=== PATIENT | female | born 1970 | race African-American/Black ===

== ENCOUNTER 2018-01-15 02:37 | Emergency (ER) | payer BC ==
[2018-01-15] MEDS ORDERED: Morphine 4 MG/ML VIAL ONE ×2 (03:33→04:41)
[2018-01-15] MEDS ORDERED: Ondansetron HCl/PF 4 MG/2 ML Vial ONE (03:33)
[2018-01-15 03:58] LABS: #Basophils 0.1 thou/uL (0.0-0.2); #Eosinphils 0.1 thou/uL (0.0-0.7); #Lymphocytes 2.9 thou/uL (1.20-3.40); #Monocytes 0.5 thou/uL (0.11-0.59); #Neutrophils 3.2 thou/uL (1.40-6.50); %Basophils 1.3 % (0.0-1.0); %Eosinophils 1.2 % (0.0-10.0); %Lymphocytes 42.8 % (21.0-51.0); %Monocytes 7.9 % (0.0-10.0); %Neutrophils 46.8 % (42.0-75.0); Hemoglobin 10.8 g/dL (12.0-16.0); Mean Corpuscular HGB CONC 32.7 g/dL (32.0-36.0); Mean Corpuscular Hemoglobin 26.4 pg (27.0-31.0); Mean Corpuscular Volume 80.7 fL (78.0-98.0); Platelet Count 343 thou/uL (130-400); RBC Distribution Width 16.3 % (11.5-14.5); Red Blood Cell (RBC) Count 4.11 mill/uL (4.20-5.40); White Blood Cell (WBC) Count 6.9 thou/uL (4.8-10.8)
[2018-01-15 04:20] LABS: ALT (SGPT) 13 U/L (8-55); AST (SGOT) 14 U/L (5-34); Albumin 4.5 g/dL (3.5-5.0); Alkaline Phosphatase 61 U/L (40-150); Anion Gap 16 mmol/L (10-20); BUN (Urea Nitrogen) 19 mg/dL (7.0-18.7); Bilirubin, Total Less than 0.2 mg/dL (0.2-1.2); Calc. Creatinine Clearance 0 mL/min (70-130); Calcium 9.3 mg/dL (7.8-10.44); Carbon Dioxide 17 mmol/L (22-29); Chloride 106 mmol/L (98-107); Estimated GFR-MDRD 60; Globulin 3.5 g/dL (2.4-3.5); Glucose 94 mg/dL (70-105); Lipase 25 U/L (8-78); Potassium 4.6 mmol/L (3.5-5.1); Sodium 134 mmol/L (136-145)
[2018-01-15 04:48] LABS: BHCG - Serum Negative (NEGATIVE); Pregs Control Background? CLEAR/WHITE (CLR/WHITE); Pregs Control Bar Appear? YES (CONTROL BAR)
[2018-01-15 05:36] LABS: Bilirubin Negative (Negative); Blood, Urine Negative (Negative); Clarity CLEAR (Clear); Glucose, Urine (Dipstick) Negative (Negative); Leukocyte Negative (Negative); Nitrite Negative (Negative); Protein, Urine (Dipstick) Negative (Neg-Trace); Urobilinogen 0.2 mg/dL (0.2-1.0); pH, Urine 6.5 (5.0-9.0)
--- NOTE | 2018-01-15 09:44 | CT ---
PRELIMINARY REPORT/[facility]/EMERGENTY AFTER-HOURS PROCEDURE CT Abdomen and Pelvis With Intravenous Contrast EXAM DATE/TIME: Exam ordered 01/15/2018 4:29 AM CLINICAL HISTORY: 47 years old, female; Pain; Abdominal pain; Generalized; Patient HX: 47f presents to the ed for evalu ation of lower abdominal pain x2 days. Reports pain was intermittent yesterday but is more constant t jesse. Reports recent cervical ca and is being seen at [facility]. Reports she is having surgery on 01/23. Reports her doctor told her it was in the early stages. TECHNIQUE: Axial computed tomography images of the abdomen and pelvis with intravenous contrast. Coronal reformatted images were created and reviewed. COMPARISON: No relevant prior studies available. FINDINGS: Lung bases: There is subpleural atelectasis of the dependent portions of the lungs. ABDOMEN: Liver: Normal. No mass. Gallbladder and bile ducts: There has been a cholecystectomy. No ductal dilation. Pancreas: The pancreas appears normal. No ductal dilation. Spleen: The spleen is normal. Adrenals: The adrenal glands are normal. Kidneys and ureters: The kidneys appear normal. No hydronephrosis. Stomach and bowel: The stomach is normal. The duodenum is unremarkable. The colon is normal. No obstr uction. No mucosal thickening. PELVIS: Appendix: A normal appendix is identified. Bladder: The bladder is normal. Reproductive: The uterus is normal. ABDOMEN and PELVIS: Intraperitoneal space: Normal. No free air. No significant fluid collection. Bones/joints: No acute fracture. No dislocation. Soft tissues: Normal. Vasculature: The vasculature is normal. There are phleboliths in the pelvis. No abdominal aortic aneu rysm. Lymph nodes: Normal. No enlarged lymph nodes. IMPRESSION: No acute abdominal pelvic pathology. Thank you for allowing us to participate in the care of your patient. Dictated and Authenticated by: Elio Núñez MD 01/15/2018 4:52 AM Central Time ([place] & [place]) FINAL REPORT CT ABDOMEN AND PELVIS: Date: 01/15/18 IMPRESSION: I agree with the preliminary report provided by Eloisa. No definite acute CT findings are evident to ex plain the patient's abdominal pain. POS: [facility]
== END 2018-01-15 06:10 | disposition home or self-care (01) ==
LOC: ERS 02:37
DX: R10.32 Left lower quadrant pain (principal); R10.31 Right lower quadrant pain; F41.9 Anxiety disorder, unspecified; Z79.899 Other long term (current) drug therapy
CPT/HCPCS: 74177; 80053; 81003; 83605; 83690; 84703; 85025; 96361; 96374; 96375; 96376; J2270; J2405

== ENCOUNTER 2019-07-12 15:22 | Emergency (ER) | payer SELFPAY ==
[~2019-07-12 15:22] MED LIST: Iopamidol-370 76% 500 ML 1 ML ONE
[2019-07-12] MEDS ORDERED: Ondansetron PF 4 MG/2 ML Vial ONE (16:07)
[2019-07-12] MEDS ORDERED: Acetaminophen 500 MG TAB ONE (16:07)
[2019-07-12 16:19] LABS: #Basophils 0.1 thou/uL (0.0-0.2); #Eosinphils 0.2 thou/uL (0.0-0.7); #Monocytes 0.8 thou/uL (0.11-0.59); #Neutrophils 3.9 thou/uL (1.40-6.50); %Basophils 1.2 % (0.0-1.0); %Eosinophils 2.2 % (0.0-10.0); %Lymphocytes 37.9 % (21.0-51.0); %Monocytes 9.9 % (0.0-10.0); %Neutrophils 48.8 % (42.0-75.0); Hemoglobin 10.9 g/dL (12.0-16.0); Mean Corpuscular HGB CONC 31.9 g/dL (32.0-36.0); Mean Corpuscular Hemoglobin 25.1 pg (27.0-31.0); Mean Corpuscular Volume 78.8 fL (78.0-98.0); Mean Platelet Volume 8.8 fL (7.4-10.4); Platelet Count 365 thou/uL (130-400); RBC Distribution Width 16.7 % (11.5-14.5); Red Blood Cell (RBC) Count 4.34 mill/uL (4.20-5.40)
[2019-07-12 16:26] LABS: Bilirubin Negative (Negative); Blood, Urine Negative (Negative); Clarity Clear (Clear); Glucose, Urine (Dipstick) Normal (Negative); Leukocyte Negative Leu/uL (Negative); Nitrite Negative (Negative); Protein, Urine (Dipstick) Negative (Neg-Trace); Urobilinogen Normal mg/dL (Less than 2)
[2019-07-12] MEDS ORDERED: Hydrocodone-Acetamin 15 ML UDCUP ONE (17:02)
--- NOTE | 2019-07-12 17:23 | CT ---
CT of abdomen and pelvis: 07/12/2019 COMPARISON: 01/15/2018 HISTORY: Left lower quadrant pain TECHNIQUE: Axial CT imaging at 5 mm intervals from lung bases through pubic symphysis with IV contras t. Coronal and sagittal reformatted imaging obtained. FINDINGS: The visualized lung bases demonstrate no acute findings. Cholecystectomy clips are present. No free intraperitoneal air. The liver, spleen, pancreas, adrenal glands, and kidneys appear grossly unremarkable. There is a focal area of inflammatory fat stranding adjacent to the colon anteriorly within the left lower quadrant at the junction of the descending colon and sigmoid colon. This is best seen on axial image 65 and there is a central area of fat attenuation in the region of this inflammatory lau ge. This is felt to represent epiploic appendagitis. No evidence for large or small bowel obstruction. There is significant stool seen within the colon fr om the level of the cecum through the level of the distal transverse colon. The appendix is not discretely visualized. No right lower quadrant inflammatory change noted. Vascular structures of abdomen/pelvis appear patent. No lymphadenopathy. No acute osseous abnormality . IMPRESSION: Focal area of inflammatory change within the left lower quadrant anterior to the junction of the descending colon and sigmoid colon. There is fat attenuation at the epicenter of this inflammatory change suggesting epiploic appendagitis.
[2019-07-12 17:25] LABS: Albumin 3.8 g/dL (3.5-5.0)
[2019-07-12 17:26] LABS: Chloride 107 mmol/L (98-107); Sodium 135 mmol/L (136-145)
[2019-07-12 17:27] LABS: Calcium 8.3 mg/dL (7.8-10.44); Glucose 72 mg/dL (70-105)
[2019-07-12 17:28] LABS: Protein, Total 6.8 g/dL (6.0-8.3)
[2019-07-12 17:29] LABS: Anion Gap 15 mmol/L (10-20); Bilirubin, Total Less than 0.2 mg/dL (0.2-1.2); Carbon Dioxide 17 mmol/L (22-29)
[2019-07-12 17:30] LABS: Alkaline Phosphatase 94 U/L (40-110)
[2019-07-12 17:31] LABS: Calc. Creatinine Clearance 0 mL/min (70-130); Estimated GFR-MDRD 81
[2019-07-12 17:32] LABS: BUN (Urea Nitrogen) 15 mg/dL (7.0-18.7)
[2019-07-12 17:33] LABS: ALT (SGPT) 11 U/L (8-55); AST (SGOT) 14 U/L (5-34); Lipase 11 U/L (8-78)
[2019-07-12] MEDS ORDERED: Morphine 4 MG/ML VIAL ONE (18:26)
== END 2019-07-12 19:08 | disposition home or self-care (01) ==
LOC: ERS 15:22
DX: K63.89 Other specified diseases of intestine (principal); F41.9 Anxiety disorder, unspecified; F32.9 Major depressive disorder, single episode, unspecified; Z79.899 Other long term (current) drug therapy
CPT/HCPCS: 36416; 74177; 80053; 81003; 83690; 85025; 96361; 96374; 96375; J2270; J2405; Q9967

== ENCOUNTER 2019-09-10 18:46 | Emergency (ER) | payer OTHER, SELFPAY ==
[~2019-09-10 18:46] MED LIST changes: +Iopamidol 370 76% 100 ML VIAL ONE; -Iopamidol-370 76% 500 ML 1 ML ONE
[2019-09-10] MEDS ORDERED: Ondansetron PF 4 MG/2 ML Vial ONE (19:16)
[2019-09-10] MEDS ORDERED: Morphine 4 MG/ML VIAL ONE ×3 (19:16→23:01)
[2019-09-10 19:42] LABS: #Basophils 0.1 thou/uL (0.0-0.2); #Eosinphils 0.1 thou/uL (0.0-0.7); #Lymphocytes 2.9 thou/uL (1.20-3.40); #Monocytes 0.6 thou/uL (0.11-0.59); #Neutrophils 2.4 thou/uL (1.40-6.50); %Basophils 1.8 % (0.0-1.0); %Eosinophils 2.3 % (0.0-10.0); %Lymphocytes 47.3 % (21.0-51.0); %Monocytes 9.2 % (0.0-10.0); %Neutrophils 39.5 % (42.0-75.0); Hemoglobin 11.5 g/dL (12.0-16.0); Mean Corpuscular HGB CONC 31.5 g/dL (32.0-36.0); Mean Corpuscular Hemoglobin 25.3 pg (27.0-31.0); Mean Corpuscular Volume 80.3 fL (78.0-98.0); Mean Platelet Volume 8.1 fL (7.4-10.4); Platelet Count 323 thou/uL (130-400); RBC Distribution Width 16.6 % (11.5-14.5); Red Blood Cell (RBC) Count 4.53 mill/uL (4.20-5.40); White Blood Cell (WBC) Count 6.1 thou/uL (4.8-10.8)
--- NOTE | 2019-09-10 20:04 | RAD ---
ONE VIEW CHEST: History: Nausea, vomiting, dyspnea, abdominal pain and body aches. Comparison: 11-24-16 FINDINGS: Cardiac silhouette and pulmonary vasculature are within normal limits. Linear density is seen at the left lung base which may represent minimal atelectasis versus scarring. The lungs are otherwise clear without consolidation or pleural fluid. No other interval change. IMPRESSION: No acute cardiopulmonary process. POS: [facility]
[2019-09-10 20:06] LABS: ALT (SGPT) 15 U/L (8-55); AST (SGOT) 14 U/L (5-34); Albumin 4.5 g/dL (3.5-5.0); Alkaline Phosphatase 113 U/L (40-110); Anion Gap 15 mmol/L (10-20); BUN (Urea Nitrogen) 7 mg/dL (7.0-18.7); Bilirubin, Total Less than 0.2 mg/dL (0.2-1.2); CK (CPK) 88 U/L (29-168); Calc. Creatinine Clearance 0 mL/min (70-130); Calcium 9.1 mg/dL (7.8-10.44); Carbon Dioxide 18 mmol/L (22-29); Chloride 108 mmol/L (98-107); Estimated GFR-MDRD 83; Globulin 3.1 g/dL (2.4-3.5); Glucose 99 mg/dL (70-105); Lipase 15 U/L (8-78); Potassium 4.3 mmol/L (3.5-5.1); Protein, Total 7.6 g/dL (6.0-8.3)
[2019-09-10 20:15] LABS: Sodium 137 mmol/L (136-145)
--- NOTE | 2019-09-10 20:57 | CT ---
CT CHEST, ABDOMEN, AND PELVIS WITH IV CONTRAST: Indications: Shortness of breath with abdominal pain and fever. FINDINGS: CT CHEST: The lung buchanan appear well aerated and clear. No evidence of infiltrate or effusion. There is mild a telectatic change in both lung bases. Mediastinum unremarkable. IMPRESSION: No acute chest process. CT ABDOMEN AND PELVIS: Liver, spleen, pancreas unremarkable. Post cholecystectomy change. Adrenal glands and kidneys unremarkable. Urinary bladder unremarkable. Small bowel loops normal caliber. Appendix is not identified. Prominent stool in the right colon and transverse colon. No adenopathy or mass. No free fluid. Pelvic structures unremarkable. IMPRESSION: No acute findings. POS: [facility]
[2019-09-10 21:12] LABS: Bilirubin Negative (Negative); Blood, Urine Negative (Negative); Clarity Clear (Clear); Glucose, Urine (Dipstick) Normal (Negative); Leukocyte Negative Leu/uL (Negative); Nitrite Negative (Negative); Protein, Urine (Dipstick) Negative (Neg-Trace); Urobilinogen Normal mg/dL (Less than 2)
[2019-09-11 10:04] LABS: SARS-CoV-2 MS2 Positive; SARS-CoV-2 N Gene Negative; SARS-CoV-2 S Gene Negative; SARS-CoV-2 orf1ab Negative
--- NOTE | 2019-09-12 13:26 | EKG ---
Test Reason : Blood Pressure : / mmHG Vent. Rate : 115 BPM Atrial Rate : 113 BPM P-R Int : 000 ms QRS Dur : 084 ms QT Int : 468 ms P-R-T Axes : 000 044 050 degrees QTc Int : 647 ms Accelerated Junctional rhythm Abnormal ECG Confirmed by ALAINA CUEVAS ([id number]), editor newspaper SHRUTI METCALF ([id number]) on 09/12/2019 1:25:45 PM Referred By: Confirmed By:ALAINA CUEVAS
== END 2019-09-10 23:50 | disposition home or self-care (01) ==
LOC: ERS 18:46
DX: R10.32 Left lower quadrant pain (principal); B34.9 Viral infection, unspecified; Z20.828 Contact with and (suspected) exposure to other viral communicable diseases; R11.2 Nausea with vomiting, unspecified; F41.9 Anxiety disorder, unspecified; F32.9 Major depressive disorder, single episode, unspecified; Z79.899 Other long term (current) drug therapy
CPT/HCPCS: 71045; 71260; 74177; 80053; 81003; 82550; 83605; 83690; 84484; 85025; 87040; 87081; 87430; 87635; 87804; 93005; 96361; 96374; 96375; 96376; J0500; J2270; J2405; Q9967; U0003